=== PATIENT | male | born 1955 | race Caucasian/White ===

== ENCOUNTER 2018-08-28 12:09 | Emergency (ER) | payer BC, MEDICAID ==
[~2018-08-28] VITALS: Ht 167.6 cm; Wt 86.2 kg
[2018-08-28 12:12] VITALS: BP 153/89
[2018-08-28] MEDS ORDERED: ATORVASTATIN CA10 MG ORAL (12:16)
[2018-08-28] MEDS ORDERED: ATACAND HCT 321 EAC1 ORAL (12:16)
--- NOTE | 2018-08-28 12:17 | NUR ---
ED Nurse Note: Patient walked into ED c/o diffculty urinating. patient states that it started since yesterday. patient states he is able to pass out urine just a little bit. patient states he is not taking any medication regarding this issue. patient is alert awake x4 ambulatory.
--- NOTE | 2018-08-28 12:31 | Emergency Room Report ---
History of Present Illness General Chief Complaint: Male Urogenital Problems Source: Patient Present Illness HPI 63-year-old male patient presents the ER complaining of "I need a catheter placed". Patient reports that he has had difficulty urinating since yesterday. Reports he has the urge to urinate. Reports history of similar problems in the past however has never had a catheter placed. Reports that some urine "dribblled" out. States that he contacted his physician back home to come to the ER to get a catheter placed. Reports epigastric fullness. Denies abdominal pain. Denies dysuria, hematuria. Denies penile discharge. Denies flank pain. Denies fever, chest pain or shortness of breath, vomiting. States not taking any medications currently for his prostate. Allergies: Coded Allergies: PENICILLINS (Verified Allergy, Unknown, 08/28/18) Patient History Past Medical History: see triage record Reviewed Nursing Documentation: PMH: Agreed; PSxH: Agreed Nursing Documentation-PMH Hx Hypertension: Yes - HYPERLIPIDEMIA Review of Systems All Other Systems: negative except mentioned in HPI Physical Exam Vital Signs Date Time Temp Pulse Resp B/P (MAP) Pulse Ox O2 Delivery O2 Flow Rate FiO2 08/28/18 12:12 98.6 78 19 153/89 95 Room Air Sp02 EP Interpretation: reviewed, normal General Appearance: well appearing, no apparent distress, alert, GCS 15, non- toxic Head: normocephalic, atraumatic Eyes: bilateral eye normal inspection, bilateral eye PERRL ENT: hearing grossly normal, normal pharynx, no angioedema, normal voice, uvula midline, moist mucus membranes Neck: full range of motion Respiratory: lungs clear, normal breath sounds, no rhonchi, no respiratory distress, no accessory muscle use, no wheezing, speaking full sentences Cardiovascular #1: regular rate, rhythm, no edema Gastrointestinal: non tender, soft, no mass, non-distended, no guarding, no rebound Genitourinary: no CVA tenderness Musculoskeletal: back normal, digits/nails normal, gait/station normal, normal range of motion, non-tender Neurologic: alert, oriented x3, responsive, motor strength/tone normal, sensory intact Psychiatric: mood/affect normal Skin: no rash Medical Decision Making PA Attestation Dr. Trejo is my supervising Physician whom patient management has been discussed with. Diagnostic Impression: Primary Impression: Acute urinary retention ER Course Pt. presents to the ED c/o difficulty urinating x1 day. Ddx considered but are not limited to UTI, BPH, urinary obstruction. Vital signs: are WNL, pt. is afebrile ER COURSE: Shin catheter placed in the ER. Instructed patient to follow-up with primary care provider and get referral to urology. UA shows no acute disease, does not require abx at this time. Drink plenty of fluids. Patient reports feeling better following catheter replacement. 1000 ml urine drained, patient reports symptoms improved. ER precautions given, patient stable and discharged home with Shin catheter. Will provide patient with Flomax. Followup with urology. ER precautions given. DISCHARGE: Rx provided for Flomax Rx provided for Tylenol for pain as needed if they present. At this time pt is stable for d/c to home. Patient is resting comfortably, in no acute distress, nontoxic appearing, talking without difficulty. Patient to take medications as instructed Will provide with patient care instructions and any necessary prescriptions. Care plan and follow-up instructions provided. Patient instructed to follow-up with primary care provider in 3 - 5 days. Patient questions asked and answered. Patient reports understanding and agreement to treatment plan. ER precautions given. Patient instructed to return to ER immediately for any new or worsening of symptoms including but not limited to increasing SOB, persistent fever, chest pain, intractable vomiting. - Please note that this Emergency Department Report was dictated using [employer] directional survey technology software, occasionally this can lead to erroneous entry secondary to interpretation by the dictation equipment. Labs Test 08/28/18 12:37 Urine Color Pale yellow Urine Appearance Clear Urine pH 6.5 (4.5-8.0) Urine Specific Dawson 1.015 (1.005-1.035) Urine Protein Negative (NEGATIVE) Urine Glucose (UA) Negative (NEGATIVE) Urine Ketones Negative (NEGATIVE) Urine Blood Negative (NEGATIVE) Urine Nitrite Negative (NEGATIVE) Urine Bilirubin Negative (NEGATIVE) Urine Urobilinogen Normal MG/DL (0.0-1.0) Urine Leukocyte Esterase Negative (NEGATIVE) Status: improved Disposition: HOME, SELF-CARE Condition: Stable Scripts Acetaminophen* (TYLENOL EXTRA STRENGTH*) 500 Mg Tablet 500 MG ORAL Q8H PRN for Prn Headache/Temp > 101, #30 TAB 0 Refills Prov: Nathaniel Cardona 08/28/18 Tamsulosin HCl (Flomax) 0.4 Mg Cap.er.24h 0.4 MG ORAL DAILY, #14 CAP Prov: Nathaniel Cardona 08/28/18 Patient Instructions: Acute Urinary Retention, Male, [id number], Shin Catheter Care, Adult Additional Instructions: Followup with primary care provider in 3 -5 days. Patient is allowed to fly with catheter placed. Take medications as directed. Patient questions asked and answered. ER precautions given, patient instructed to return to ER immediately for any new or worsening of symptoms. Nathaniel Cardona Aug 28, 2018 12:31
--- NOTE | 2018-08-28 12:35 | NUR ---
ED Nurse Note: indwelling virgen catheter placed using sterile technique as ordered by PATRICIO Dalal. patient tolerated procedure.
[2018-08-28] MEDS ORDERED: FLOMAX0.4 MG ORAL (12:38)
--- NOTE | 2018-08-28 12:41 | NUR ---
ED Nurse Note: UA sent to lab
[2018-08-28 12:56] LABS: APPEARANCE,URINE CLEAR; BILIRUBIN, URINE NEGATIVE (NEGATIVE); COLOR,URINE PALE YELLOW; GLUCOSE, URINE (UA) NEGATIVE (NEGATIVE); KETONES,URINE NEGATIVE (NEGATIVE); LEUKOCYTE ESTERASE ,URINE NEGATIVE (NEGATIVE); NITRITE,URINE NEGATIVE (NEGATIVE); PH,URINE 6.5 (4.5-8.0); PROTEIN,URINE NEGATIVE (NEGATIVE); UROBILINOGEN,URINE NORMAL MG/DL (0.0-1.0)
[2018-08-28] MEDS ORDERED: TYLENOL EXTRA500 MG ORAL (13:14)
[2018-08-28] MEDS ORDERED: Acetaminophen 500mg (ES) tab ORAL ONE (13:18)
[2018-08-28 13:25] VITALS: BP 153/89
--- NOTE | 2018-08-28 13:34 | NUR ---
ER DISCHARGE NOTE: Patient is cleared to be discharged per BUBBA PALTA, pt is aox4, on room air, with stable vital signs. Patient's virgen is inact, draining by gravity. patient instructed how to manage the indwelling virgen and leg bag, patient able to show correct demonstration back. pt was given dc and prescription instructions, pt was able to verbalize understanding, pt id band removed without complications. pt is able to ambulate with steady gait. pt took all belongings.
== END 2018-08-28 13:25 | disposition home or self-care (01) ==
LOC: EMR 13:25
DX: R33.9 Retention of urine, unspecified (principal); Z88.0 Allergy status to penicillin; E78.5 Hyperlipidemia, unspecified; I10 Essential (primary) hypertension
CPT/HCPCS: 51702; 81003; 99284